=== PATIENT | female | born 1955 | race Caucasian/White ===

== ENCOUNTER 2018-11-21 23:12 | Emergency (ER) | payer BC ==
[~2018-11-21] VITALS: Ht 165.1 cm; Wt 77.1 kg
[2018-11-21 23:35] LABS: BASO # 0.1 x10^3/uL (0.0-0.2); BASO % 1 % (0-3); EOS # 0.2 x10^3/uL (0.0-0.7); EOS % 2 % (0-3); HEMATOCRIT 41.2 % (36.0-47.0); HEMOGLOBIN 13.5 g/dL (12.0-15.5); LYMPH # 2.3 x10^3/uL (1.0-4.8); LYMPH % 32 % (24-48); MEAN CORPUSCULAR HEMOGLOBIN 29 pg (25-35); MEAN CORPUSCULAR HGB CONC 33 g/dL (31-37); MEAN CORPUSCULAR VOLUME 90 fL (79-100); MONO # 0.7 x10^3/uL (0.0-1.1); MONO % 9 % (0-9); NEUT # 4.1 x10^3uL (1.8-7.7); NEUT % 56 % (31-73); PLATELET COUNT 205 x10^3/uL (140-400); RED CELL DISTRIBUTION WIDTH 13.1 % (11.5-14.5); WHITE BLOOD COUNT 7.2 x10^3/uL (4.0-11.0)
--- NOTE | 2018-11-21 23:40 | PHYS DOC ---
Past Medical History Past Medical History: CAD ("small vessel disease"), High Cholesterol Smoking: Quit Greater Than 1 Year Adult General Chief Complaint Chief Complaint: CHEST PAIN HPI HPI Patient is a 62-year-old female who presents to the emergency department for evaluation. She states that she began experiencing some anterior chest discomfort, along with some right arm discomfort, about 45 minutes prior to arrival. She states that she has been "sick" for the past several days, having had a fever and a cough over the past few days, mostly late last week, but her symptoms seem to improve since yesterday. She has not had any exertional chest pain, but has had some nausea associated with her chest discomfort. She has not had any vomiting, or pleuritic pain per se. She states that she has a prior history of "small vessel disease", but has never had any cardiac stenting. She states that she last had stress testing about 4 years ago in [place]. She does take a baby aspirin once a day. She took a nitroglycerin prior to arrival which caused a headache but did not appreciably affect her chest discomfort. There are no alleviating, or exacerbating factors to her symptoms, except as noted. The patient's HEART score is a 3, assuming a negative troponin. Review of Systems Review of Systems Constitutional: Denies fever or chills [] Eyes: Denies change in visual acuity, redness, or eye pain [] HENT: Denies nasal congestion or sore throat [] Respiratory: Denies pleuritic pain or shortness of breath [] Cardiovascular: No additional information not addressed in HPI [] GI: Denies abdominal pain, nausea, vomiting, bloody stools or diarrhea [] : Denies dysuria or hematuria [] Musculoskeletal: Denies back pain or joint pain [] Integument: Denies rash or skin lesions [] Neurologic: Denies headache, focal weakness or sensory changes [] Endocrine: Denies polyuria or polydipsia [] All other systems were reviewed and found to be within normal limits, except as documented in this note. Current Medications Current Medications Current Medications Medications (Trade) Dose Ordered Sig/Amaury Start Time Stop Time Status Last Admin Dose Admin Acetaminophen (Tylenol) 1,000 mg 1X ONCE 11/22/18 00:00 11/22/18 00:01 DC 11/21/18 23:52 1,000 MG Aspirin (Children'S Aspirin) 324 mg 1X ONCE 11/21/18 23:45 11/21/18 23:46 DC 11/21/18 23:51 324 MG Nitroglycerin (Nitro-Bid Oint) 1 inch 1X ONCE 11/21/18 23:45 11/21/18 23:46 DC 11/21/18 23:45 1 INCH Allergies Allergies Allergies Coded Allergies Type Severity Reaction Last Updated Verified codeine Allergy Mild HEADACHE 11/21/18 Yes Physical Exam Physical Exam PHYSICAL EXAM: CONSTITUTIONAL: Well developed, well nourished HEAD: normocephalic, atraumatic EENT: PERRL, EOMI. Conjunctivae normal color, sclerae non-icteric; moist mucous membranes. NECK: Supple, non-tender; no meningismus. LUNGS: Lungs CTA, breathing even and unlabored. Normal air movement. HEART: Regular rate and rhythm, no murmur CHEST: No deformity; there is tenderness to palpation of the anterior chest wall. ABDOMEN: The abdomen is soft, and non-tender, no masses or bruits. EXTREM: Normal ROM; no deformity, no calf tenderness. Normal pulses palpable in all extremities. There is no pedal edema. SKIN: No rash; no diaphoresis NEURO: Alert; normal speech and cognition; CN's grossly intact; strength grossly intact without focal deficit. BACK: No CVA TTP. Current Patient Data Vital Signs Vital Signs Date Time Temp Pulse Resp B/P (MAP) Pulse Ox O2 Delivery O2 Flow Rate FiO2 11/21/18 23:45 88 167/99 11/21/18 23:14 98.2 20 98 Room Air 98.2 Lab Values Laboratory Tests Test 11/21/18 23:25 White Blood Count 7.2 x10^3/uL (4.0-11.0) Red Blood Count 4.60 x10^6/uL (3.50-5.40) Hemoglobin 13.5 g/dL (12.0-15.5) Hematocrit 41.2 % (36.0-47.0) Mean Corpuscular Volume 90 fL (79-100) Mean Corpuscular Hemoglobin 29 pg (25-35) Mean Corpuscular Hemoglobin Concent 33 g/dL (31-37) Red Cell Distribution Width 13.1 % (11.5-14.5) Platelet Count 205 x10^3/uL (140-400) Neutrophils (%) (Auto) 56 % (31-73) Lymphocytes (%) (Auto) 32 % (24-48) Monocytes (%) (Auto) 9 % (0-9) Eosinophils (%) (Auto) 2 % (0-3) Basophils (%) (Auto) 1 % (0-3) Neutrophils # (Auto) 4.1 x10^3uL (1.8-7.7) Lymphocytes # (Auto) 2.3 x10^3/uL (1.0-4.8) Monocytes # (Auto) 0.7 x10^3/uL (0.0-1.1) Eosinophils # (Auto) 0.2 x10^3/uL (0.0-0.7) Basophils # (Auto) 0.1 x10^3/uL (0.0-0.2) Sodium Level 143 mmol/L (136-145) Potassium Level 3.6 mmol/L (3.5-5.1) Chloride Level 104 mmol/L (98-107) Carbon Dioxide Level 28 mmol/L (21-32) Anion Gap 11 (6-14) Blood Urea Nitrogen 13 mg/dL (7-20) Creatinine 0.9 mg/dL (0.6-1.0) Estimated GFR (Cockcroft-Gault) 63.9 BUN/Creatinine Ratio 14 (6-20) Glucose Level 98 mg/dL (70-99) Calcium Level 9.1 mg/dL (8.5-10.1) Total Bilirubin 0.3 mg/dL (0.2-1.0) Aspartate Amino Transferase (AST) 21 U/L (15-37) Alanine Aminotransferase (ALT) 28 U/L (14-59) Alkaline Phosphatase 82 U/L (46-116) Creatine Kinase 75 U/L (26-192) Creatine Kinase MB (Mass) 1.0 ng/mL (0.0-3.6) Creatine Kinase MB Relative Index 1.3 % (0-4) Troponin I Quantitative < 0.017 ng/mL (0.000-0.055) EJ-Ion-K-Type Natriuretic Peptide 41 pg/mL (0-124) Total Protein 7.8 g/dL (6.4-8.2) Albumin 3.7 g/dL (3.4-5.0) Albumin/Globulin Ratio 0.9 (1.0-1.7) L Influenza Type A Antigen Positive (NEGATIVE) Influenza Type B Antigen Negative (NEGATIVE) Laboratory Tests 11/21/18 23:25 Laboratory Tests 11/21/18 23:25 EKG EKG [Normal sinus rhythm a rate of 91 bpm, normal axis, normal intervals, nonspecific ST/T changes are present in the EKG limited by motion artifact. Repeat EKG, done approximately 20 minutes after the first, shows normal sinus rhythm a rate of 87 beats for minute, normal axis, normal intervals, nonspecific ST/T changes.] Radiology/Procedures Radiology/Procedures [ER physician preliminary chest x-ray interpretation: No acute disease.] Course & Med Decision Making Course & Med Decision Making Pertinent Labs and Imaging studies reviewed. (See chart for details) []12:20 AM: The patient's condition remained stable. I had an extensive discussion with the patient about the limitations of ER cardiac evaluation in definitively ruling out acute coronary syndrome. We discussed limitation of the ER evaluation and a singe ED troponin in r/o AMI, and the risks involved in missed diagnosis of acute coronary syndrome including or permanent debility. I recommended overnight observation for further formal cardiac evaluation to rule out acute coronary syndrome. After expressing understanding of the limitations of ER cardiac evaluation, as well as the risks of missed diagnosis, the patient declined further cardiac evaluation at this time. The patient was mentally competent, and given opportunity to ask questions about the diagnosis and recommended plan of care. I stressed the importance of outpatient follow-up, and returning to the emergency department for new or worsening symptoms, or if the patient is agreeable to undergo further cardiac evaluation. I also discussed Tamiflu with the patient. Given that her flu symptoms have significantly resolved over the past few days and do not think she will benefit from Tamiflu when she agrees and does not request a prescription at this time. Dragon Disclaimer Dragon Disclaimer This electronic medical record was generated, in whole or in part, using a voice recognition dictation system. Departure Departure Impression: Primary Impression: Atypical chest pain Additional Impression: Influenza A Disposition: 01 HOME, SELF-CARE Condition: STABLE Patient Instructions: Chest Pain (Nonspecific), Influenza, Adult Problem Qualifiers RAMILA CORTES MD Nov 21, 2018 23:40
[2018-11-21] MEDS ORDERED: NITROGLYCERIN OINT 1 GM PACKET. TP ONE (23:45)
[2018-11-21] MEDS ORDERED: ASPIRIN CHEWABLE 81 MG TABLET. PO ONE (23:45)
[2018-11-21 23:48] LABS: CALCIUM 9.1 mg/dL (8.5-10.1); CREATININE 0.9 mg/dL (0.6-1.0); GFR 63.9; POTASSIUM 3.6 mmol/L (3.5-5.1)
[2018-11-21 23:53] LABS: ALBUMIN 3.7 g/dL (3.4-5.0); ALBUMIN/GLOBULIN RATIO 0.9 (1.0-1.7); TOTAL BILIRUBIN 0.3 mg/dL (0.2-1.0); TOTAL PROTEIN 7.8 g/dL (6.4-8.2)
[2018-11-21 23:55] LABS: INFLUENZA A PATIENT POSITIVE (NEGATIVE); INFLUENZA B PATIENT NEGATIVE (NEGATIVE)
[2018-11-22] MEDS ORDERED: ACETAMINOPHEN 500 MG TABLET PO ONE
[2018-11-22 00:37] VITALS: BP 138/78
--- NOTE | 2018-11-22 01:19 | RAD ---
Single view chest dated 11/21/2018. No comparison available. Clinical indication: Chest pain. Flulike symptoms. FINDINGS: PA and lateral views obtained. Heart and mediastinal contours within normal limits. Cardiac monitoring device on the left. Lungs are clear. No consolidation or pleural effusion. No pneumothorax. IMPRESSION: No acute radiographic abnormality. Electronically signed by: Romulo Ramesh MD (11/22/2018 1:16 AM) [id number]
--- NOTE | 2018-11-22 07:19 | EKG ---
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
--- NOTE | 2018-11-22 07:19 | EKG ---
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
== END 2018-11-22 00:37 | disposition home or self-care (01) ==
LOC: ER 23:12
DX: R07.89 Other chest pain (principal); J10.1 Influenza due to other identified influenza virus with other respiratory manifestations; E78.00 Pure hypercholesterolemia, unspecified; I25.10 Atherosclerotic heart disease of native coronary artery without angina pectoris; Z87.891 Personal history of nicotine dependence; Z79.82 Long term (current) use of aspirin; Z88.5 Allergy status to narcotic agent
CPT/HCPCS: 36415; 71046; 80053; 82553; 83880; 84484; 85025; 87804; 93005; 99284-25